=== PATIENT | female | born 1980 | race Caucasian/White ===

== ENCOUNTER 2020-01-04 13:32 | Emergency (ER) | payer OTHER ==
[2020-01-04 13:38] VITALS: PULSE 80; RESP 18; TEMP 98.1
[2020-01-04] MEDS ORDERED: predniSONE 50 MG TAB PO STA (14:44)
--- NOTE | 2020-01-04 14:49 | ED ---
General Adult HPI - General Chief complaint: Allergic Reaction Stated complaint: Bee Stings Time Seen by Provider: 01/04/20 13:35 Source: patient, RN notes reviewed, old records reviewed Mode of arrival: ambulatory Limitations: no limitations - History of Present Illness Initial comments: This is a 39-year-old female who presents emergency Department complaining that she was stung by a wasp in her left ear and on her left buttocks cheek. Patient states both areas are very tender and she is worried because her still red and she thinks it might be infected. Patient has stated that she is to get here so that it is open. Patient states her some spreading of the redness is only around the area the initial sting. Patient states she's had no short of breath or difficulty breathing. Patient denies any fever chills. - Related Data Allergies Allergy/AdvReac Type Severity Reaction Status Date / Time Penicillins Allergy Anaphylaxis Verified 01/04/20 13:39 Sulfa (Sulfonamide Allergy Rash/Hives Verified 01/04/20 13:39 Antibiotics) meperidine [From Demerol] AdvReac Confusion Verified 01/04/20 13:39 Review of Systems ROS Statement: Those systems with pertinent positive or pertinent negative responses have been documented in the HPI. ROS Other: All systems not noted in ROS Statement are negative. Past Medical History Past Medical History: COPD History of Any Multi-Drug Resistant Organisms: None Reported Past Surgical History: Orthopedic Surgery, Uterine Ablation Additional Past Surgical History / Comment(s): carpel tunnel surgery Past Psychological History: No Psychological Hx Reported Smoking Status: Current every day smoker Past Alcohol Use History: Occasional Past Drug Use History: Marijuana General Exam - General Exam Comments Initial Comments: GENERAL Patient is well-developed and well-nourished. Patient is in mild distress. EYES Patient's pupils are equal and round. Extraocular motion is intact SKIN Patient has redness to the earlobe on the left and there is a slight abrasion where the patient is that the original sting site. Patient also has an area of erythema to the left buttocks cheek with a very superficial abrasion from the patient scratching. No spreading of any erythema. NEURO The patient is alert and oriented 3 PYSCH Patient has normal interpersonal interactions. MUSCULOSKELETAL All 4 extremities have full range of motion Limitations: no limitations Course Vital Signs 01/04/20 13:34 Temperature 98.1 F Pulse Rate 80 Respiratory 18 Rate Blood Pressure 152/89 O2 Sat by Pulse 98 Oximetry Disposition Clinical Impression: Allergic reaction Disposition: HOME SELF-CARE Condition: Good Instructions (If sedation given, give patient instructions): General Allergic R eaction (ED) Additional Instructions: Patient should continue using Benadryl when necessary for symptoms. Is patient prescribed a controlled substance at d/c from ED?: No Referrals: None,Stated [Primary Care Provider] - 1-2 days Time of Disposition: 14:44
[2020-01-04] MEDS ORDERED: BACITRACIN OINT 1 EACH PACKET TOPICAL ONE (14:52)
[2020-01-04 14:58] VITALS: BP 148/78
== END 2020-01-04 14:53 | disposition home or self-care (01) ==
LOC: EC 13:32
DX: T63.441A Toxic effect of venom of bees, accidental (unintentional), initial encounter (principal); S00.412A Abrasion of left ear, initial encounter; S30.810A Abrasion of lower back and pelvis, initial encounter; S00.81XA Abrasion of other part of head, initial encounter; F17.200 Nicotine dependence, unspecified, uncomplicated; Z88.0 Allergy status to penicillin; Z88.2 Allergy status to sulfonamides; Z88.5 Allergy status to narcotic agent; Y92.89 Other specified places as the place of occurrence of the external cause; Y93.89 Activity, other specified
CPT/HCPCS: 99283; J7512

== ENCOUNTER 2020-01-05 21:27 | Emergency (ER) | payer OTHER ==
[2020-01-05] MEDS ORDERED: Acetaminophen-Codeine 300-30mg TAB PO STA (22:00)
[2020-01-05] MEDS ORDERED: CEPHALEXIN 500 MG CAP PO STA (22:00)
[2020-01-05 22:02] VITALS: RESP 18
--- NOTE | 2020-01-05 22:31 | XR ---
EXAMINATION TYPE: XR Hip Limited LT DATE OF EXAM: 01/05/2020 COMPARISON: NONE HISTORY: Hip pain TECHNIQUE: 2 views FINDINGS: I see no fracture nor dislocation. Joint spaces are normal. Sacroiliac joint appears intact . IMPRESSION: Negative left hip exam.
[2020-01-05] MEDS ORDERED: DIPH,PERTUS(ACELL)TETVAC-LF 0.5 ML VIAL IM ONE (22:42)
[2020-01-05] MEDS ORDERED: CEPHALEXIN 500MG STARTER PACK 4 CAP BTL PO STA (22:51)
--- NOTE | 2020-01-05 22:51 | ED ---
General Adult HPI - General Chief complaint: Skin/Abscess/Foreign Body Stated complaint: Stung by bees Time Seen by Provider: 01/05/20 21:40 Source: patient, RN notes reviewed, old records reviewed Mode of arrival: ambulatory Limitations: no limitations - History of Present Illness Initial comments: 39-year-old female patient presents to ED with chief complaint of pain in her left hip region. Patient was stung by multiple bees 2 days ago. She is reporting that she has pain and redness in her left hip region. Denies any other complaints. Systemic: Pt denies fatigue, rash. Pt denies weakness, night sweats, weight loss. Neuro: Pt denies headache, visual disturbances, syncope or pre-syncope. HEENT: Pt denies ocular discharge or irritation, otalgia, rhinorrhea, pharyngitis or notable lymphadenopathy. Cardiopulmonary: Pt denies chest pain, SOB, heart palpitations, dyspnea on exertion. Abdominal/GI: Pt denies abdominal pain, n/v/d. : Pt denies dysuria, burning w/ urination, frequency/urgency. Denies new onset urinary or bowel incontinence. MSK: Pt denies myalgia, loss of strength or function in extremities. Neuro: Pt denies new onset weakness, paresthesias. - Related Data Previous Rx's Medication Instructions Recorded Cephalexin [Keflex] 500 mg PO Q6HR 10 Days #40 cap 01/05/20 EPINEPHrine (Auto Inject) [Epipen] 0.3 mg IM ONCE PRN #2 pen 01/05/20 Allergies Allergy/AdvReac Type Severity Reaction Status Date / Time Penicillins Allergy Anaphylaxis Verified 01/05/20 21:31 Sulfa (Sulfonamide Allergy Rash/Hives Verified 01/05/20 21:31 Antibiotics) meperidine [From Demerol] AdvReac Confusion Verified 01/05/20 21:31 Review of Systems ROS Statement: Those systems with pertinent positive or pertinent negative responses have been documented in the HPI. ROS Other: All systems not noted in ROS Statement are negative. Past Medical History Past Medical History: COPD History of Any Multi-Drug Resistant Organisms: None Reported Past Surgical History: Orthopedic Surgery, Uterine Ablation Additional Past Surgical History / Comment(s): carpel tunnel surgery Past Psychological History: No Psychological Hx Reported Smoking Status: Current every day smoker Past Alcohol Use History: Occasional Past Drug Use History: Marijuana General Exam - General Exam Comments Initial Comments: Constitutional: NAD, AOX3, Pt has pleasant affect. HEENT: NC/AT, trachea midline, neck supple, no lymphadenopathy.External ears appear normal, without discharge. Mucous membranes moist. EOM intact. There is no scleral icterus. No pallor noted. Cardiopulmonary: RRR, no murmurs, rubs or gallops, no JVD noted. Lungs CTAB in anterior and posterior francis. No peripheral edema. Abdominal exam: Abdomen soft and non-distended. Abdomen non-tender to palpation in all 4 quadrants. Bowel sounds active in LLQ. No hepatosplenomegaly. No ecchymosis Neuro: CN II-XII grossly intact. No nuchal rigidity. No raccon eyes, no tsang sign, no hemotympanum. No cervical spinal tenderness. MSK: Approximately 4 x 3inch area of erythema to the left hip region. There is a small abrasion where she had the stinger removed. Tender to palpation. No crepitus. No fluctuance. Full active ROM in upper and lower extremities, 5/5 stregnth. Limitations: no limitations Course Vital Signs 01/05/20 01/05/20 21:28 22:01 Temperature 99.8 F H 99.2 F Pulse Rate 94 89 Respiratory 22 18 Rate Blood Pressure 123/83 115/70 O2 Sat by Pulse 97 98 Oximetry Medical Decision Making - Medical Decision Making 39-year-old feel patient is a complaint of pain and redness or she was stung by bees 2 days ago. Patient will signs are stable, afebrile. Physical exam displayed erythema and tenderness to palpation. No crepitus or fluctuance. Patient initiated on Keflex 4 times a day we'll have a strict return precautions and close follow-up with primary care provider tomorrow and will return to ED if condition worsens. Case discussed with Dr. Levin. Disposition Clinical Impression: Cellulitis Disposition: HOME SELF-CARE Condition: Stable Instructions (If sedation given, give patient instructions): Cellulitis (ED) Additional Instructions: Follow-up with primary care provider tomorrow. Take antibiotics as directed. Return to ER if condition worsens in any way. Prescriptions: EPINEPHrine (Auto Inject) [Epipen] 0.3 mg IM ONCE PRN #2 pen PRN Reason: Anaphylaxis Cephalexin [Keflex] 500 mg PO Q6HR 10 Days #40 cap Is patient prescribed a controlled substance at d/c from ED?: No Referrals: None,Stated [Primary Care Provider] - 1-2 days
[2020-01-05] MEDS ORDERED: ACET/COD 300 MG/30 MG STARTER PACK 6 TAB BTL PO STA (23:43)
[2020-01-05 23:56] VITALS: BP 105/56; PULSE 81; TEMP 99.5
== END 2020-01-05 23:57 | disposition home or self-care (01) ==
LOC: EC 21:27
DX: L03.116 Cellulitis of left lower limb (principal); F17.200 Nicotine dependence, unspecified, uncomplicated; Z88.0 Allergy status to penicillin; Z88.2 Allergy status to sulfonamides; Z88.5 Allergy status to narcotic agent; Z23 Encounter for immunization
CPT/HCPCS: 73501; 90471; 90715; 99284

== ENCOUNTER 2020-02-27 11:34 | Emergency (ER) | payer OTHER ==
[2020-02-27] MEDS ORDERED: KETOROLAC 15 MG/ML 1 ML VIAL IM STA (11:57)
--- NOTE | 2020-02-27 12:20 | XR ---
EXAMINATION TYPE: XR tibia fibula RT DATE OF EXAM: 02/27/2020 COMPARISON: NONE HISTORY: Pain TECHNIQUE: Two views are submitted. FINDINGS: The osseous structures are intact. The joint spaces are preserved. Arthropathy of the knee. Soft ti ssue calcifications noted. IMPRESSION: 1. No acute osseous abnormality.
--- NOTE | 2020-02-27 12:21 | XR ---
EXAMINATION TYPE: XR ankle complete RT DATE OF EXAM: 02/27/2020 COMPARISON: NONE HISTORY: Pain FINDINGS: Three views of the ankle demonstrate the ankle mortise to be intact and symmetric. The joint spaces are preserved. The osseous structures are intact. Small plantar calcaneal spur. IMPRESSION: 1. No definite acute fracture or dislocation, if symptoms persist follow-up study in 7 to 10 days wou ld be suggested.
--- NOTE | 2020-02-27 12:22 | XR ---
EXAMINATION TYPE: XR foot complete RT DATE OF EXAM: 02/27/2020 COMPARISON: NONE HISTORY: Pain TECHNIQUE: Three views are submitted. FINDINGS: The osseous structures are intact. There is no acute fracture or dislocation. Joint spaces are p reserved. Small plantar calcaneal spur. IMPRESSION: 1. No acute fracture or dislocation. If symptoms persist, follow-up exam in 7 to 10 days could be ob tained.
[2020-02-27] MEDS ORDERED: ACET/COD 300 MG/30 MG STARTER PACK 6 TAB BTL PO STA (12:38)
--- NOTE | 2020-02-27 12:38 | ED ---
Lower Extremity Injury HPI - General Chief Complaint: Extremity Injury, Lower Stated Complaint: rt foot injury Time Seen by Provider: 02/27/20 11:53 Source: patient Mode of arrival: ambulatory Limitations: no limitations - History of Present Illness Initial Comments: Patient is a 39-year-old female presenting to the emergency Department with complaints of pain in her right lower leg after she fell yesterday. Patient states she was chasing [id number] daughter and she slipped on the sidewalk hitting a metal pole. She is having pain down her right saavedra into her right ankle and a significant amount of pain in the medial aspect of her right foot. She denies any other injuries from this fall, she did not hit her head. She denies any previous surgeries or injuries to her right lower extremity. She has no further complaints at this time. Patient states she is not . - Related Data Previous Rx's Medication Instructions Recorded Cephalexin [Keflex] 500 mg PO Q6HR 10 Days #40 cap 01/05/20 EPINEPHrine (Auto Inject) [Epipen] 0.3 mg IM ONCE PRN #2 pen 01/05/20 Allergies Allergy/AdvReac Type Severity Reaction Status Date / Time Penicillins Allergy Anaphylaxis Verified 02/27/20 11:43 Sulfa (Sulfonamide Allergy Rash/Hives Verified 02/27/20 11:43 Antibiotics) meperidine [From Demerol] AdvReac Confusion Verified 02/27/20 11:43 Review of Systems ROS Statement: Those systems with pertinent positive or pertinent negative responses have been documented in the HPI. ROS Other: All systems not noted in ROS Statement are negative. Past Medical History Past Medical History: COPD History of Any Multi-Drug Resistant Organisms: None Reported Past Surgical History: Orthopedic Surgery, Uterine Ablation Additional Past Surgical History / Comment(s): carpel tunnel surgery Past Psychological History: No Psychological Hx Reported Smoking Status: Current every day smoker Past Alcohol Use History: Occasional Past Drug Use History: Marijuana General Exam - General Exam Comments Initial Comments: GENERAL: Patient is well-developed and well-nourished. Patient is nontoxic and in no acute distress. HEAD: Atraumatic, normocephalic. EYES: Pupils equal round and reactive to light, extraocular movements intact, sclera anicteric, conjunctiva are normal. Eyelids were unremarkable. ENT: TMs normal, nares patent, oropharynx clear without exudates. Moist mucous membranes. NECK: Normal range of motion, supple without lymphadenopathy or JVD. LUNGS: Unlabored respirations. Breath sounds clear to auscultation bilaterally and equal. No wheezes rales or rhonchi. HEART: Regular rate and rhythm without murmurs, rubs or gallops. ABDOMEN: Soft, nontender, normoactive bowel sounds. No guarding, no rebound. No masses appreciated. : Deferred MUSCULOSKELETAL: Patient has severe pain with palpation of the dorsal aspect of the right foot, medial aspect. There is some bruising to the area, no swelling. Patient is able to wiggle her toes. Mild pain with palpation of the medial malleolus, no swelling at this location. She does have bruising down her saavedra. No significant pain with compression. She is neurovascular intact. No clubbing or cyanosis. NEUROLOGICAL: Patient is alert and oriented x 3. Motor and sensory are also intact. Normal speech. PSYCH: Normal mood, normal affect. SKIN: Warm, Dry, normal turgor, no rashes or lesions noted. Limitations: no limitations Course Vital Signs 02/27/20 11:43 Temperature 98.3 F Pulse Rate 82 Respiratory 18 Rate Blood Pressure 132/88 O2 Sat by Pulse 99 Oximetry Medical Decision Making - Medical Decision Making Patient is a 39-year-old female here for right lower leg pain after she fell yesterday. X-rays of the right tib-fib, right ankle, right foot revealed no acute fractures dislocations. I discussed with patient that she most likely has bone contusions. We did put an Gabriele wrap around her right foot for support. I did give her work note as well. She is requesting additional pain medicines, I sent home with a Tylenol 3 starter pack. I also suggested continuing with Aleve for discomfort. If symptoms persist after one week she can follow up with orthopedic. She is in agreement with this plan of care. She is stable for discharge. Disposition Clinical Impression: Contusion of right ankle, Contusion of foot, right Disposition: HOME SELF-CARE Condition: Stable Instructions (If sedation given, give patient instructions): Foot Contusion (ED) Additional Instructions: Please return to the Emergency Department if symptoms worsen or any other concerns. Use ice on the foot as well as Gabriele wrap as needed. May take ibuprofen or Aleve for pain. Follow-up with orthopedics if symptoms persist after 1-2 weeks. Is patient prescribed a controlled substance at d/c from ED?: No Referrals: None,Stated [Primary Care Provider] - 1-2 days Ramu Fernandez DO [Medical Doctor] - 1-2 days
[2020-02-27 12:54] VITALS: BP 138/78; PULSE 78; RESP 16; TEMP 97.8
== END 2020-02-27 12:53 | disposition home or self-care (01) ==
LOC: EC 11:34
DX: S90.01XA Contusion of right ankle, initial encounter (principal); S90.31XA Contusion of right foot, initial encounter; F17.200 Nicotine dependence, unspecified, uncomplicated; Z88.0 Allergy status to penicillin; Z88.2 Allergy status to sulfonamides; Z88.5 Allergy status to narcotic agent; Z98.890 Other specified postprocedural states; W01.198A Fall on same level from slipping, tripping and stumbling with subsequent striking against other object, initial encounter; Y93.89 Activity, other specified; Y92.009 Unspecified place in unspecified non-institutional (private) residence as the place of occurrence of the external cause
CPT/HCPCS: 73590; 73610; 73630; 96372; 99283; J1885